=== PATIENT | male | born 1955 | race Caucasian/White ===

== ENCOUNTER 2016-12-18 11:38 | Emergency (ER) | payer BC ==
[2016-12-18] MEDS ORDERED: Lidocaine 1% with EPINEPHrine 1:100,000 20 ML MDV INJECT ONE (11:51)
[2016-12-18] MEDS ORDERED: Diphtheria,Pertussis(Acell),Tetanus Vaccine 0.5 ML SDV IM ONE (11:51)
--- NOTE | 2016-12-18 12:16 | EDM.PDOC ---
ED HPI GENERAL MEDICAL PROBLEM - General Chief Complaint: Lower Extremity Injury/Pain Stated Complaint: LACERATION ON BACK OF LEFT ANKLE Time Seen by Provider: 12/18/16 11:52 Source of Information: Reports: Patient History Limitations: Reports: No Limitations - History of Present Illness INITIAL COMMENTS - FREE TEXT/NARRATIVE: 61 yo male slipped and incurred a flap laceration to the back of his L distal calf. Here for eval/repair. Does not recall timing of tetanus. Onset: Today Onset Date: 12/18/16 Onset Time: 11:35 Duration: Minutes:, Constant Location: Reports: Lower Extremity, Left Quality: Reports: Burning Severity: Mild Improves with: Reports: None Worsens with: Reports: None Context: Reports: Trauma Associated Symptoms: Reports: No Other Symptoms Treatments [employer]: Reports: Other (see below) (wrapped with gauze) - Related Data Allergies Allergy/AdvReac Type Severity Reaction Status Date / Time shellfish Allergy Swelling Uncoded 12/18/16 12:02 Home Meds: Home Meds Levothyroxine 75 mcg PO ACBREAKFAST 12/18/16 [History] Review of Systems - Review of Systems Review Of Systems: See Below Constitutional: Reports: No Symptoms Musculoskeletal: Reports: No Symptoms Skin: Reports: Wound Neurological: Reports: No Symptoms ED EXAM, GENERAL - Physical Exam Exam: See Below Exam Limited By: No Limitations General Appearance: Alert, WD/WN, No Apparent Distress Extremities: Leg Pain (left, distal, posterior) Neurological: Alert, Oriented, CN II-XII Intact, Normal Cognition, No Motor/ Sensory Deficits Psychiatric: Normal Affect, Normal Mood Skin Exam: Warm, Dry, Normal Color, No Rash, Wound/Incision Lymphatic: No Adenopathy ED TRAUMA EXTREMITY PROCEDURES - Laceration/Wound Repair Left Lower Posterior Midline Distal Leg Lac/Wound Length In cm: 12 Appearance: Subcutaneous Distal NVT: Neuro & Vascular Intact, No Tendon Injury Anesthetic Type: Local Local Anesthesia - Lidocaine (Xylocaine): 1% with EPI Local Anesthetic Volume: Other (12 ml) Skin Prep: Saline Exploration/Debridement/Repair: Wound Explored, No Foreign Material Found Closed With: Sutures Suture Size: other (5-0) Suture Type: Nylon Drain Placement: No Sterile Dressing Applied: Nurse Tetanus Status Addressed: Yes Course - Vital Signs Text/Narrative:: Adacel IM - Orders/Labs/Meds Orders: Active Orders 24 hr Category Date Time Status Vaccines to be Administered [RC] PER UNIT ROUTINE Care 12/18/16 11:51 Active Meds: Medications Discontinued Medications Generic Name Dose Route Start Last Admin Trade Name Marilee PRN Reason Stop Dose Admin Diphtheria/Tetanus/Acell Pertussis 0.5 ml 12/18/16 11:51 12/18/16 12:16 Adacel IM 12/18/16 11:52 0.5 ml .ONCE ONE Administration Lidocaine/Epinephrine 20 ml 12/18/16 11:51 12/18/16 12:17 Xylocaine 1% With Epinephrine 1:100,000 INJECT 12/18/16 11:52 20 ml ONETIME ONE Administration Departure - Departure Time of Disposition: 13:04 Disposition: Home, Self-Care 01 Condition: Good Clinical Impression: Leg laceration Qualifiers: Encounter type: initial encounter Laterality: left Qualified Code(s): S81.812A - Laceration without foreign body, left lower leg, initial encounter - Discharge Information Referrals: Stephen Tapia MD [Primary Care Provider] - Forms: ED Department Discharge Additional Instructions: Clean wound twice daily with soap and water. Dry. Apply Bacitracin ointment and a new dressing. Stitches out in the clinic in 10 days, call for an appt. Recheck for signs of infection. Acetaminophen as needed for pain relief. - My Orders Last 24 Hours: My Active Orders 12/18/16 11:51 Vaccines to be Administered [RC] PER UNIT ROUTINE - Assessment/Plan Last 24 Hours: My Active Orders 12/18/16 11:51 Vaccines to be Administered [RC] PER UNIT ROUTINE
== END 2016-12-18 13:47 | disposition home or self-care (01) ==
LOC: FB.ED 11:38
DX: S81.812A Laceration without foreign body, left lower leg, initial encounter (principal); Z91.013 Allergy to seafood; Z23 Encounter for immunization; W18.00XA Striking against unspecified object with subsequent fall, initial encounter
CPT/HCPCS: 12004; 90471; 90715; 99283; A4217; 12002